=== PATIENT | male | born 1990 | race Caucasian/White ===

== ENCOUNTER 2018-08-30 03:38 | Inpatient (IN) | payer BC ==
[~2018-08-30] VITALS: Ht 177.8 cm; Wt 93.0 kg
--- NOTE | 2018-08-30 03:47 | NUR ---
Patient to ER bed 8 to gown for evaluation. Side rails up.
[2018-08-30 03:50] VITALS: BP_SYST 138
--- NOTE | 2018-08-30 03:52 | NUR ---
ADDI Smith at bedside examining patient.
--- NOTE | 2018-08-30 03:53 | NUR ---
Patient arrived from work [id number] and able to verbalize his needs. Complaints of right lower abdominal pain 01/28 that comes and goes since 0200. Slight nausea but none at this time. Denies any chest pain, vomiting, chills or fever. Patient is ambulatory with a steady gait.
[2018-08-30] MEDS ORDERED: KETOROLAC TROMETHAMINE 30 MG VIAL IM ONE (04:15)
--- NOTE | 2018-08-30 04:44 | NUR ---
# 20 gauge angiocath placed to RIGHT AC. Use of asceptic technique. Opsite placed over site. Blood return noted. Blood for lab drawn from site. Flushed with 10 cc of normal saline. No evidence of infiltration noted. Patient tolerated well.
[2018-08-30 05:10] LABS: CREATININE 0.87 mg/dL (0.55-1.30)
[2018-08-30 05:12] LABS: BASOPHILS % (AUTO) 0.7 % (0.0-2.0); EOSINOPHILS # (AUTO) 0.1 K/uL (0.0-0.4); EOSINOPHILS % (AUTO) 2.2 % (0.0-4.0); HEMATOCRIT 47.7 % (36-54); HEMOGLOBIN 15.4 g/dL (14.0-18.0); LYMPHOCYTES # (AUTO) 2.4 K/uL (1.0-5.5); MEAN CORPUSCULAR HEMOGLOBIN 27 pg (27-31); MEAN CORPUSCULAR HGB CONC 32 % (32-36); MEAN CORPUSCULAR VOLUME 84 fL (79.0-98.0); MONOCYTES # (AUTO) 0.6 K/uL (0.0-1.0); MONOCYTES % (AUTO) 9.5 % (1.7-9.3); NEUTROPHILS # (AUTO) 3.3 K/uL (1.8-7.7); NEUTROPHILS % (AUTO) 50.6 % (40.0-70.0); PLATELET COUNT (AUTO) 288 K/uL (130-430); RED CELL DISTRIBUTION WIDTH 12.5 % (9.0-15.0); WHITE BLOOD COUNT (AUTO) 6.4 K/uL (4.8-10.8)
[2018-08-30 05:15] LABS: ALBUMIN 3.9 g/dL (3.4-4.8); TOTAL BILIRUBIN 0.5 mg/dL (0.0-1.0)
[2018-08-30] MEDS ORDERED: HYDROmorphone 2 MG/ML VIAL IVP PRN (05:30)
[2018-08-30] MEDS ORDERED: MORPHINE 4 MG/ML INJ. SYRINGE IVP ONE (05:30)
[2018-08-30] MEDS ORDERED: PIPERACILLIN/TAZO 4.5 GM in NS 100 ML IV ONE (05:30)
[2018-08-30] MEDS ORDERED: MORPHINE 4 MG/ML INJ. SYRINGE IVP PRN (05:30)
[2018-08-30] MEDS ORDERED: NACL 0.9% 1,000 ML IV SCH (05:30)
[2018-08-30] MEDS ORDERED: ACETAMINOPHEN 325 MG TABLET PO PRN (05:30)
[2018-08-30] MEDS ORDERED: ONDANSETRON HCL 4 MG/2 ML VIAL IVP PRN (05:30)
[2018-08-30] MEDS ORDERED: NACL 0.9% 1,000 ML IV ONE (05:30)
[2018-08-30] MEDS ORDERED: ONDANSETRON HCL 4 MG/2 ML VIAL IVP ONE (05:30)
[2018-08-30] MEDS ORDERED: PIPERACILLIN/TAZOBACTAM 4.5 GM/VIAL (ZOSYN) IV ONE (05:44)
--- NOTE | 2018-08-30 05:59 | NUR ---
Patient will be admitted to care of Dr Win. Admitted to [facility] unit. Will go to room 126B. Belongings list completed. Summary report printed. Report will be given at bedside.
--- NOTE | 2018-08-30 06:22 | NUR ---
ADMIT NOTE Received pt from ER to the floor with a diagnosis of appendicitis. Admission process initiated. patient oriented to pain management, safety and call light-teach back done.
[2018-08-30 06:27] VITALS: BP_SYST 120
--- NOTE | 2018-08-30 06:59 | NUR ---
Closing note: Patient is in bed, family at bedside. Pain is at tolerable level. IV fluids infusing well. All needs met. Call light with patient. Will endorse to dayshift RN.
[2018-08-30 07:55] LABS: PROTHROMBIN TIME 10.4 SECS (9.5-12.5)
--- NOTE | 2018-08-30 07:57 | NUR ---
Opening Note received report from shift boss RN, pt resting in bed, pt reports pain is controlled at this time, no acute distress noted, family at bedside, pt educated on use of call light and asked to call for assistance, pt verbalized understanding, call light in reach, pt educated on use of bed alarm for pt safety, pt refusing bed alarm, bed in low and locked position, fall and aspiration precautions in place.
[2018-08-30 08:00] VITALS: BP_SYST 114
[2018-08-30 08:53] LABS: BILIRUBIN,URINE NEGATIVE (NEGATIVE); BLOOD, URINE NEGATIVE (NEGATIVE); CLARITY/URINE CLEAR (CLEAR); COLOR,URINE YELLOW (YELLOW); GLUCOSE,URINE NEGATIVE (NEGATIVE); KETONES,URINE NEGATIVE (NEGATIVE); LEUKOCYTE ESTERASE ,URINE NEGATIVE (NEGATIVE); NITRITE, URINE NEGATIVE (NEGATIVE); PROTEIN URINE NEGATIVE (NEGATIVE); UROBILINOGEN,URINE 0.2 (0.2-1.0)
--- NOTE | 2018-08-30 09:57 | NUR ---
MD AVILA PAGED JOSE DELGADO AT [phone] SPOKE WITH CATHERINE.
--- NOTE | 2018-08-30 10:29 | NUR ---
OR scheduled: Spoke to Dr. Win on the phone and he said that he has scheduled for surgery between 1-2 PM, and he will be in th see patient soon. Patient and the primary nurse made aware.
--- NOTE | 2018-08-30 10:31 | NUR ---
RN Rounds pt resting in bed, pt reports pain is controlled at this time, family at bedside, fall and aspiration precautions in place.
[2018-08-30] MEDS ORDERED: PIPERACILLIN/TAZO 4.5 GM in NS 100 ML IV SCH (12:00)
--- NOTE | 2018-08-30 12:22 | NUR ---
CHG CHG bath provided, no additional needs at this time, fall and aspiration precautions in place.
[2018-08-30 13:07] VITALS: BP_SYST 116
--- NOTE | 2018-08-30 14:30 | NUR ---
taken to OR Dr. Anton at bedside speaking with pt, pt taken to OR via elisabeth, no acute distress noted.
--- NOTE | 2018-08-30 15:35 | NUR ---
pt back from OR pt back from OR, orders to discharge home, full liquid tray provided to pt, pt eating, denies any nausea/vomiting, family at bedside, per pt he will have a ride home in a few hours, fall and aspiration precautions in place.
[2018-08-30 15:37] VITALS: BP_SYST 108
[2018-08-30 16:00] VITALS: BP_SYST 108
--- NOTE | 2018-08-30 16:45 | NUR ---
Discharge pt provided with discharge packet and instructions, pt verbalized understanding, IV catheter removed, catheter intact, no bleeding, hospital ID band removed, pt denies any nausea/vomiting, pt reports pain is controlled, no acute distress noted, steady gait noted, pt accompanied by his family for discharge home, all belongings sent with pt, steady gait noted, pt educated on pt safety and fall prevention, pt refusing wheelchair, pt ambulated to parking lot.
== END 2018-08-30 16:45 | disposition home or self-care (01) | DRG 395 ==
LOC: SED 03:38 → SMU 05:24
PROVIDERS: ADMIT Surgery; ATTEND Surgery
DX: K35.80 Unspecified acute appendicitis (principal); D72.829 Elevated white blood cell count, unspecified
CPT/HCPCS: 36415; 80053; 81003; 83605; 83690-TC; 85025; 85610-TC; 85730-TC; 86886; 86900; 86901; 87040-TC; 87081; 96365; 96372; 96375; 99285; J1885; J2270; J2405; J2543; J7030